=== PATIENT | female | born 1945 | race Caucasian/White ===

== ENCOUNTER 2023-06-28 05:28 | Day surgery (SDC) | payer MEDICARE ==
[2023-06-21 16:09] LABS: BASOPHILS % (AUTO) 0.3 % (0-1); LYMPHOCYTES # (AUTO) 1.9 X10'3 (1.1-4.8); LYMPHOCYTES % (AUTO) 38.1 % (21-51); MEAN CORPUSCULAR HEMOGLOBIN 30.2 PG (27.0-31.0); MEAN CORPUSCULAR HGB CONC 34.7 g/dL (33.0-36.5); MEAN CORPUSCULAR VOLUME 86.9 FL (78-98); MEAN PLATELET VOLUME 7.2 FL (7.4-10.4); MONOCYTES # (AUTO) 0.6 X10'3 (0-0.9); MONOCYTES % (AUTO) 13.1 % (2-12); NEUTROPHILS # (AUTO) 2.3 X10'3 (1.8-7.7); NEUTROPHILS % (AUTO) 47.5 % (42-75); PRE OP HEMATOCRIT 37.3 % (35.0-45.0); PRE OP HEMOGLOBIN 12.9 g/dL (12.0-16.0); PRE OP PLATELET COUNT 230 X10'3 (140-440); PRE OP WHITE BLOOD COUNT 4.9 10'3 (4.8-10.8); RED BLOOD COUNT 4.29 X10'6 (4.20-5.60); RED CELL DISTRIBUTION WIDTH 14.2 % (11.5-14.5)
[2023-06-21 16:30] LABS: ALBUMIN 3.6 G/DL (3.4-5.0); ALKALINE PHOSPHATASE 113 IU/L (46-116); BLOOD UREA NITROGEN 12 MG/DL (7-18); BUN/CREATININE RATIO 14.8 (10.0-20.0); CHLORIDE 101 MMOL/L (99-107); CREATININE 0.81 MG/DL (0.40-0.90); PRE OP ALT 11 U/L (30-65); PRE OP ANION GAP 8 (8-16); PRE OP AST 14 U/L (10-37); PRE OP BILIRUB, TOTAL 0.5 MG/DL (0.0-1.0); PRE OP GLUCOSE 99 MG/DL (70-104); PRE OP POTASSIUM 3.7 MMOL/L (3.4-5.1); PRE OP SODIUM 138 MMOL/L (135-145); TOTAL CARBON DIOXIDE 28.6 MMOL/L (24-32); TOTAL PROTEIN 7.1 G/DL (6.4-8.2); eGFR 68 ML/MIN
[~2023-06-28] VITALS: Ht 162.6 cm; Wt 54.0 kg
[2023-06-28] VITALS (14 sets, daily range): BP systolic 122–144; BP diastolic 58–102; PULSE 74–90; RESP 14–21; TEMP 97.7; O2SAT 93–99
[~2023-06-28 05:28] MED LIST: ALBU0.63 NEB; APIX5TAB3 PO; BUDE0.5A11 IH; CARV3.122 PO; LOSA-415 PO; MULT-1085 PO; VISION PLUS PO; ringers solution, lacted 1,000 ML IV SCH
[2023-06-28] MEDS ORDERED: famotidine 20mg tablet PO ONE (05:30)
[2023-06-28] MEDS ORDERED: DOCUMENT DATE & TIME OF BETA-BLOCKER PO ONE (05:30)
[2023-06-28] MEDS ORDERED: LIDOCAINE 4% (40MG/ML) topical solution 50ml **BRONCH ONLY ONE (07:27)
[2023-06-28] MEDS ORDERED: epiNEPHrine 1 MG/ML 1 ml ampule **BRONCH ONLY ONE (07:27)
[2023-06-28] MEDS ORDERED: fentaNYL/PF 50MCG/1 ML 2ML syringe ONE (07:38)
[2023-06-28] MEDS ORDERED: midazolam 1 mg/ML 2ml injection ONE (07:40)
[2023-06-28] MEDS ORDERED: neostigmine methylsulfate 1 MG/ML 10ml vial ONE (07:42)
[2023-06-28] MEDS ORDERED: sevoflurane 250ml liquid IH ONE (07:42)
[2023-06-28] MEDS ORDERED: acetaminophen 1,000mg/100ml IV 100 ML IV ONE (07:45)
[2023-06-28] MEDS ORDERED: ondansetron/PF 4mg/2ml inj IV PRN (07:45)
[2023-06-28] MEDS ORDERED: meperidine/PF 25mg/ml syringe IV PRN ×3 (07:45)
[2023-06-28] MEDS ORDERED: proCHLORperazine 10 MG/2 ml inj IV PRN (07:45)
[2023-06-28] MEDS ORDERED: labetalol 20mg/4ml (5mg/ml) syringe IV PRN (07:45)
[2023-06-28] MEDS ORDERED: morphine 4 MG/ML inj SYRINge IV PRN (07:45)
[2023-06-28] MEDS ORDERED: hydrALAZINE 20mg/ml inj. IV PRN (07:45)
[2023-06-28] MEDS ORDERED: ringers solution, lacted 1,000 ML IV SCH (07:45)
[2023-06-28] MEDS ORDERED: morphine 2 MG/ML inj. syringe IV PRN (07:45)
[2023-06-28] MEDS ORDERED: rocuronium 10mg/ml inj IV ONE (08:07)
[2023-06-28] MEDS ORDERED: dexamethasone sod phosphate 4mg/ml inj. ONE (08:07)
[2023-06-28] MEDS ORDERED: ondansetron/PF 4mg/2ml inj ONE (08:07)
[2023-06-28] MEDS ORDERED: 0.9 % SODIUM CHLORIDE 10 ML VIAL ONE (08:07)
[2023-06-28] MEDS ORDERED: LIDOcaine 2% (20mg/ml) 5ml vial ONE ×2 (08:07→08:56)
[2023-06-28] MEDS ORDERED: propofol inj 20 ML IV ONE (08:07)
[2023-06-28] MEDS ORDERED: ePHEDrine 50MG/ML INJ. ONE (08:07)
[2023-06-28] MEDS ORDERED: glycopyrrolate 0.2mg/ml inj ONE (08:57)
== END 2023-06-28 11:02 | disposition home or self-care (01) ==
LOC: PAS 05:28
PROVIDERS: ATTEND Internal Medicine Critical Care Medicine
DX: R91.8 Other nonspecific abnormal finding of lung field (principal); C34.32 Malignant neoplasm of lower lobe, left bronchus or lung; C96.9 Malignant neoplasm of lymphoid, hematopoietic and related tissue, unspecified; J43.9 Emphysema, unspecified; I10 Essential (primary) hypertension; M19.90 Unspecified osteoarthritis, unspecified site; K21.9 Gastro-esophageal reflux disease without esophagitis; Z87.891 Personal history of nicotine dependence; Z90.710 Acquired absence of both cervix and uterus; Z98.890 Other specified postprocedural states; Z91.012 Allergy to eggs; Z79.899 Other long term (current) drug therapy; Z79.01 Long term (current) use of anticoagulants
CPT/HCPCS: 31623; 31624; 31628; 31629; 31653; 36415; 71045; 71250; 80053; 82948; 85025; 87070; 94760; J1100; J2250; J2405; J2704; J2710; J3010; J3490; J7120; Z7506; Z7508; Z7512; 31622; 31625; 31626; 31627; 31654; A4618; J0171